=== PATIENT | female | born 1995 | race Caucasian/White ===

== ENCOUNTER 2019-01-15 02:54 | Emergency (ER) | payer BC ==
[2019-01-15] MEDS ORDERED: Phenazopyridine TAB* 100 MG PO ONE (03:06)
[2019-01-15 03:35] LABS: Urine Appearance Clear; Urine Bilirubin Negative (Negative); Urine Blood Negative (Negative); Urine Color Yellow; Urine Glucose Negative (Negative); Urine Ketones Negative (Negative); Urine Nitrite Negative (Negative); Urine Protein Negative (Negative); Urine Specific Gravity 1.004 (1.010-1.030); Urine Urobilinogen Negative (Negative)
[2019-01-15] MEDS ORDERED: traMADol TAB* 50 MG PO ONE (05:45)
[2019-01-15 06:30] LABS: ABS Eosinophils 0.1 10^3/ul (0-0.6); ABS Lymphocytes 1.7 10^3/ul (1.0-4.8); ABS Monocytes 0.6 10^3/ul (0-0.8); Eosinophil % 0.9 %; Hematocrit 36 % (35-47); Hemoglobin 12.1 g/dL (12.0-16.0); Lymphocyte % 27.4 %; Mean Corpuscular HGB Conc 34 g/dL (31-36); Mean Corpuscular Hemoglobin 30 pg (27-31); Mean Corpuscular Volume 89 fL (80-97); Mean Platelet Volume 8.5 fL (7.4-10.4); Nucleated Red Blood Cells % 0.1; Platelet Count 327 10^3/uL (150-450); Red Blood Count 4.02 10^6 /uL (3.70-4.87); Red Cell Distribution Width 13 % (10.5-15); White Blood Count 6.4 10^3/uL (3.5-10.8)
[2019-01-15 06:47] LABS: ALT 11 U/L (7-52); AST 15 U/L (13-39); Albumin/Globulin Ratio 1.4 (1-3); Alkaline Phosphatase 38 U/L (34-104); Anion Gap 6 mmol/L (2-11); BUN/Creatinine Ratio 9.6 (8-20); Blood Urea Nitrogen 7 mg/dL (6-24); C Reactive Protein 3.07 mg/L (<8.01); CO2 Carbon Dioxide 25 mmol/L (22-32); Calcium 9.4 mg/dL (8.6-10.3); Chloride 106 mmol/L (101-111); EGFR African American 120.6 (>60); EGFR Non-African American 99.7 (>60); Globulin 2.9 g/dL (2-4); Glucose 92 mg/dL (70-100); Potassium 3.9 mmol/L (3.5-5.0); Sodium 137 mmol/L (135-145); Total Protein 6.9 g/dL (6.4-8.9)
[2019-01-15 06:51] LABS: HCG Pregnancy < 0.60 mIU/mL
[2019-01-15 07:39] VITALS: BP 108/66
--- NOTE | 2019-01-15 09:25 | ED ---
Abdominal Pain/Female - HPI Summary HPI Summary: Patient is an otherwise healthy 23-year-old female presenting to the ED with bilateral lower quadrant pain since last week. She states the pain began last week, subsided throughout the week and returned 2 days ago. She states she was seen at [facility] 2 days ago and was prescribed Macrobid for a UTI staph infection. She has taken 2 doses of this medication. She states despite starting the medication, her symptoms have persisted. Denies any vaginal discharge, but states she is unsure if she has STDs. Same partner 2 years, was tested 2 months ago and this was negative. Endorses mild bilateral lower back pain. Menses to occur in approximately 9-10 days. States this is very regular. On OCP. Denies taking anything OTC for relief. Denies N/V/C/D. Denies CP, SOB. Denies vaginal bleeding. Denies chance of . This has never happened before, sxs are intermittent, aching without stabbing pain and non-radiating. - History of Current Complaint Chief Complaint: EDUrogenitalProblems Stated Complaint: PAIN IN ABDOMIN PER PT Time Seen by Provider: 01/15/19 05:36 Hx Obtained From: Patient ?: No Onset/Duration: Sudden Onset Timing: Days Severity Initially: Moderate Severity Currently: Moderate Pain Intensity: 0 Pain Scale Used: 0-10 Numeric Radiates: No Aggravating Factor(s): Nothing Alleviating Factor(s): Nothing Associated Signs and Symptoms: Positive: Negative - Risk Factors Ectopic Risk Factor: Negative Ovarian Torsion Risk Factor: Reproductive Age Allergies/Adverse Reactions: Allergies Allergy/AdvReac Type Severity Reaction Status Date / Time No Known Allergies Allergy Verified 01/15/19 02:59 PMH/Surg Hx/FS Hx/Imm Hx Previously Healthy: Yes - Immunization History Hx Pertussis Vaccination: No Immunizations Up to Date: Yes Infectious Disease History: No Infectious Disease History: Denies: Traveled Outside the [place] in Last 30 Days - Social History Occupation: Unemployed, Student Lives: Dormitory/Roommates Alcohol Use: None Hx Substance Use: No Substance Use Type: Reports: None Hx Tobacco Use: No Smoking Status (MU): Never Smoked Tobacco Review of Systems Constitutional: Negative Negative: Fever, Chills, Fatigue, Skin Diaphoresis Negative: Shortness Of Breath, Cough Positive: Abdominal Pain. Negative: Vomiting, Diarrhea, Nausea Genitourinary: Negative Positive: no symptoms reported. Negative: see HPI Negative: Arthralgia, Myalgia Negative: Headache, Weakness All Other Systems Reviewed And Are Negative: Yes Physical Exam Triage Information Reviewed: Yes Vital Signs On Initial Exam: Initial Vitals Temp Pulse Resp BP Pulse Ox 99.1 F 79 16 129/80 99 01/15/19 02:57 01/15/19 02:57 01/15/19 02:57 01/15/19 02:57 01/15/19 02:57 Vital Signs Reviewed: Yes Appearance: Positive: Well-Appearing, Well-Nourished Skin: Positive: Skin Color Reflects Adequate Perfusion Head/Face: Positive: Normal Head/Face Inspection Eyes: Positive: EOMI, Conjunctiva Clear Neck: Positive: Supple, No Lymphadenopathy Respiratory/Lung Sounds: Positive: Clear to Auscultation Cardiovascular: Positive: RRR, Pulses are Symmetrical in both Upper and Lower Extremities Bowel Sounds: Positive: Present Musculoskeletal: Positive: Normal, Strength/ROM Intact Neurological: Positive: Sensory/Motor Intact, Alert, Oriented to Person Place, Time Psychiatric: Positive: Affect/Mood Appropriate AVPU Assessment: Alert Diagnostics - Vital Signs Vital Signs Temp Pulse Resp BP Pulse Ox 01/15/19 07:38 98.9 F 84 16 108/66 96 01/15/19 05:09 98.2 F 78 16 112/84 97 01/15/19 02:57 99.1 F 79 16 129/80 99 - Laboratory Lab Results: Lab Results 01/15/19 01/15/19 01/15/19 Range/Units 03:27 06:12 06:12 WBC 6.4 (3.5-10.8) 10^3/uL RBC 4.02 (3.70-4.87) 10^6 /uL Hgb 12.1 (12.0-16.0) g/dL Hct 36 (35-47) % MCV 89 (80-97) fL MCH 30 (27-31) pg MCHC 34 (31-36) g/dL RDW 13 (10.5-15) % Plt Count 327 (150-450) 10^3/uL MPV 8.5 (7.4-10.4) fL Neut % (Auto) 62.2 % Lymph % (Auto) 27.4 % [place] % (Auto) 9.0 % Eos % (Auto) 0.9 % Baso % (Auto) 0.5 % Absolute Neuts (auto) 4.0 (1.5-7.7) 10^3/ul Absolute Lymphs (auto) 1.7 (1.0-4.8) 10^3/ul Absolute Monos (auto) 0.6 (0-0.8) 10^3/ul Absolute Eos (auto) 0.1 (0-0.6) 10^3/ul Absolute Basos (auto) 0.0 (0-0.2) 10^3/ul Absolute Nucleated RBC 0.0 10^3/ul Nucleated RBC % 0.1 Sodium 137 (135-145) mmol/L Potassium 3.9 (3.5-5.0) mmol/L Chloride 106 (101-111) mmol/L Carbon Dioxide 25 (22-32) mmol/L Anion Gap 6 (2-11) mmol/L BUN 7 (6-24) mg/dL Creatinine 0.73 (0.51-0.95) mg/dL Est GFR ( Amer) 120.6 (>60) Est GFR (Non-Af Amer) 99.7 (>60) BUN/Creatinine Ratio 9.6 (8-20) Glucose 92 (70-100) mg/dL Calcium 9.4 (8.6-10.3) mg/dL Total Bilirubin 0.40 (0.2-1.0) mg/dL AST 15 (13-39) U/L ALT 11 (7-52) U/L Alkaline Phosphatase 38 (34-104) U/L C-Reactive Protein 3.07 (<8.01) mg/L Total Protein 6.9 (6.4-8.9) g/dL Albumin 4.0 (3.2-5.2) g/dL Globulin 2.9 (2-4) g/dL Albumin/Globulin Ratio 1.4 (1-3) Beta HCG, Quant < 0.60 mIU/mL Urine Color Yellow Urine Appearance Clear Urine pH 7.0 (5-9) Ur Specific [place] 1.004 L (1.010-1.030) Urine Protein Negative (Negative) Urine Ketones Negative (Negative) Urine Blood Negative (Negative) Urine Nitrate Negative (Negative) Urine Bilirubin Negative (Negative) Urine Urobilinogen Negative (Negative) Ur Leukocyte Esterase Negative (Negative) Urine Glucose Negative (Negative) Result Diagrams: 01/15/19 06:12 01/15/19 06:12 Lab Statement: Any lab studies that have been ordered have been reviewed, and results considered in the medical decision making process. Abdominal Pain Fem Course/Dx - Course Course Of Treatment: Patient's evaluated for bilateral lower quadrant pain since last week. She states while the symptoms started last week, they have remained intermittent throughout the course of the week and returned today despite being on antibiotics, Macrobid for a confirmed UTI at [facility]. She states she was given Pyridium, but this did not improve her symptoms. She is given tramadol with good relief. Labs are obtained which are all WNL. UA is WNL. Discussed obtaining urine for STDs, however patient does not believe she has STDs as she has remained with the same partner 2 years. STD testing was canceled for now. Discussed treatment options with the patient. Tramadol improved her symptoms and she is currently asymptomatic. Patient states she is okay for discharge at this time and will follow up with [facility]. [facility] referral is given. She is diagnosed with abdominal pain. Differentials include mittleshmertz, appendicitis, ovarian cysts. - Diagnoses Provider Diagnoses: Abdominal pain Discharge - Sign-Out/Discharge Documenting (check all that apply): Patient Departure Patient Received Moderate/Deep Sedation with Procedure: No - Discharge Plan Condition: Stable Disposition: HOME Prescriptions: traMADol TAB* [Ultram*] 50 mg PO Q8H PRN #8 tab MDD 3 PRN Reason: Pain Patient Education Materials: Acute Abdominal Pain (ED) Referrals: Mia Cartwright MD [Medical Doctor] - No Primary Care Phys,NOPCP [Primary Care Provider] - Additional Instructions: Please follow up with OBGYN for worsening/changing symptoms If you develop worsening pain despite the medication - please return to the ED Ibuprofen 600mg three times daily - use this first If you are unable to control the pain with ibuprofen, you may use the tramadol - Billing Disposition and Condition Condition: STABLE Disposition: Home
== END 2019-01-15 07:38 | disposition home or self-care (01) ==
LOC: ED 02:54
DX: R10.31 Right lower quadrant pain (principal); R10.32 Left lower quadrant pain; M54.5 Low back pain; Z32.02 Encounter for pregnancy test, result negative
CPT/HCPCS: 36415; 80053; 81003; 84702; 85025; 86140; 99282; A9270-GY